=== PATIENT | male | born 1990 | race Caucasian/White ===

== ENCOUNTER 2021-08-26 22:14 | Emergency (ER) | payer BC ==
[~2021-08-26] VITALS: Ht 177.8 cm; Wt 81.6 kg
--- NOTE | 2021-08-26 22:52 | ED General ---
General Chief Complaint: General Problems/Pain Stated Complaint: BODY ACHES Nursing Triage Note: Pt c/o lower back pain, gen. body aches and rash to abd. Pt denies cough, fever, CP, or SOA. Pt has been w/o his lisinopril x 4-5 days. History of Present Illness Date Seen by Provider: Aug 26, 2021 Time Seen by Provider: 22:40 Initial Comments 31-year-old male with no significant PMH is here with complaints of a rash which appeared today on his chest and forearms and lower leg and his upper back. Rash is nonpruritic. 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 denies fever, nausea and vomiting, diarrhea, chest pain, shortness of breath, cough, headache or neck pain, visual disturbances, dizziness, dysuria.Pt has also had a low back ache since yesterday. Pt reports always lifting heavy objects. Denies sensory loss. Pt is able to ambulate. Allergies and Home Medications Allergies Coded Allergies: No Known Allergies (Verified Allergy, Unknown, 08/26/21) Patient Home Medication List Home Medication List Reviewed: Yes Naproxen (Naproxen) 500 Mg Tablet, 500 MG PO Q12H Prescribed by: GAVINO AGUIRRE MD on 08/27/21 0101 Review of Systems Review of Systems Constitutional: no symptoms reported EENTM: no symptoms reported Respiratory: no symptoms reported Cardiovascular: no symptoms reported Gastrointestinal: no symptoms reported Musculoskeletal: back pain Skin: rash Psychiatric/Neurological: No Symptoms Reported Hematologic/Lymphatic: No Symptoms Reported Immunological/Allergic: pollen allergy Past Qzmmica-Rymmly-Uetduw Hx Patient Social History Tobacco Use?: No Use of E-Cig and/or Vaping dev: No Substance use?: No Alcohol Use?: No Pt feels they are or have been: No Immunizations Up To Date Influenza Vaccine Up-to-Date: No; Not Current First/Initial COVID19 Vaccinat: denies Physical Exam Vital Signs Vital Signs - First Documented 08/26/21 22:25 Temp 37.6 Pulse 127 Resp 19 B/P (MAP) 149/86 (107) Pulse Ox 98 O2 Delivery Room Air Capillary Refill : Less Than 3 Seconds Height, Weight, BMI Height: '" Weight: lbs. oz. kg; 25.00 BMI Method: General Appearance: No Apparent Distress HEENT: PERRL/EOMI, TMs Normal, Normal ENT Inspection, Pharynx Normal Neck: Full Range of Motion, Normal Inspection Respiratory: Chest Non Tender, Lungs Clear, Normal Breath Sounds Cardiovascular: Regular Rate, Rhythm, No Edema, No Gallop Gastrointestinal: Normal Bowel Sounds, No Organomegaly, Non Tender, Soft Neurologic/Psychiatric: Alert, Oriented x3 Progress/Results/Core Measures Suspected Sepsis SIRS Temperature: Pulse: 127 Respiratory Rate: 19 Laboratory Tests 08/26/21 23:05: White Blood Count 9.5 Blood Pressure 149 /86 Mean: 107 Laboratory Tests 08/26/21 23:05: Creatinine 1.20, Platelet Count 207, Total Bilirubin 0.8 Results/Orders Lab Results Laboratory Tests Test 08/26/21 23:05 08/26/21 23:10 08/26/21 23:15 Range/Units White Blood Count 9.5 4.3-11.0 10^3/uL Red Blood Count 4.95 4.30-5.52 10^6/uL Hemoglobin 14.4 13.3-17.7 g/dL Hematocrit 41 40-54 % Mean Corpuscular Volume 83 80-99 fL Mean Corpuscular Hemoglobin 29 25-34 pg Mean Corpuscular Hemoglobin Concent 35 32-36 g/dL Red Cell Distribution Width 12.2 10.0-14.5 % Platelet Count 207 130-400 10^3/uL Mean Platelet Volume 9.6 9.0-12.2 fL Immature Granulocyte % (Auto) 0 % Neutrophils (%) (Auto) 72 42-75 % Lymphocytes (%) (Auto) 20 12-44 % Monocytes (%) (Auto) 7 0-12 % Eosinophils (%) (Auto) 0 0-10 % Basophils (%) (Auto) 1 0-10 % Neutrophils # (Auto) 6.9 1.8-7.8 10^3/uL Lymphocytes # (Auto) 1.9 1.0-4.0 10^3/uL Monocytes # (Auto) 0.7 0.0-1.0 10^3/uL Eosinophils # (Auto) 0.0 0.0-0.3 10^3/uL Basophils # (Auto) 0.1 0.0-0.1 10^3/uL Immature Granulocyte # (Auto) 0.0 0.0-0.1 10^3/uL Neutrophils % (Manual) 72 % Lymphocytes % (Manual) 10 % Monocytes % (Manual) 4 % Basophils % (Manual) 2 % Band Neutrophils 1 % Atypical Lymphocytes 3 % Reactive Lymphocytes 8 % Platelet Estimate NORMAL Blood Morphology Comment NORMAL Sodium Level 138 135-145 MMOL/L Potassium Level 3.9 3.6-5.0 MMOL/L Chloride Level 105 98-107 MMOL/L Carbon Dioxide Level 23 21-32 MMOL/L Anion Gap 10 5-14 MMOL/L Blood Urea Nitrogen 11 7-18 MG/DL Creatinine 1.20 0.60-1.30 MG/DL Estimat Glomerular Filtration Rate 82 BUN/Creatinine Ratio 9 Glucose Level 120 H 70-105 MG/DL Calcium Level 9.5 8.5-10.1 MG/DL Corrected Calcium 8.5-10.1 MG/DL Magnesium Level 2.0 1.6-2.4 MG/DL Total Bilirubin 0.8 0.1-1.0 MG/DL Aspartate Amino Transf (AST/SGOT) 20 5-34 U/L Alanine Aminotransferase (ALT/SGPT) 17 0-55 U/L Alkaline Phosphatase 60 40-136 U/L Total Protein 7.7 6.4-8.2 GM/DL Albumin 4.9 H 3.2-4.5 GM/DL Smear Scan REACTIVE LYMPHS SEEN Urine Color YELLOW Urine Clarity CLEAR Urine pH 8.0 5-9 Urine Specific [place] 1.020 1.016-1.022 Urine Protein NEGATIVE NEGATIVE Urine Glucose (UA) NEGATIVE NEGATIVE Urine Ketones 1+ H NEGATIVE Urine Nitrite NEGATIVE NEGATIVE Urine Bilirubin NEGATIVE NEGATIVE Urine Urobilinogen 0.2 < = 1.0 MG/DL Urine Leukocyte Esterase NEGATIVE NEGATIVE Urine RBC (Auto) NEGATIVE NEGATIVE Urine RBC NONE /HPF Urine WBC RARE /HPF Urine Squamous Epithelial Cells RARE /HPF Urine Crystals NONE /LPF Urine Bacteria NEGATIVE /HPF Urine Casts NONE /LPF Urine Mucus NEGATIVE /LPF Urine Culture Indicated NO Urine Opiates Screen NEGATIVE NEGATIVE Urine Oxycodone Screen NEGATIVE NEGATIVE Urine Methadone Screen NEGATIVE NEGATIVE Urine Propoxyphene Screen NEGATIVE NEGATIVE Urine Barbiturates Screen NEGATIVE NEGATIVE Ur Tricyclic Antidepressants Screen NEGATIVE NEGATIVE Urine Phencyclidine Screen NEGATIVE NEGATIVE Urine Amphetamines Screen NEGATIVE NEGATIVE Urine Methamphetamines Screen NEGATIVE NEGATIVE Urine Benzodiazepines Screen NEGATIVE NEGATIVE Urine Cocaine Screen NEGATIVE NEGATIVE Urine Cannabinoids Screen NEGATIVE NEGATIVE My Orders Orders - TIMOTHY,GAVINO L MD Cbc With Automated Diff (08/26/21 22:52) Comprehensive Metabolic Panel (08/26/21 22:52) Drug Screen Stat (Urine) (08/26/21 22:52) Magnesium (08/26/21 22:52) Ua Culture If Indicated (08/26/21 22:52) Ketorolac Injection (Toradol Injection) (08/26/21 23:00) Ed Iv/Invasive Line Start (08/26/21 22:52) Ns Iv 1000 Ml (Sodium Chloride 0.9%) (08/26/21 23:00) Dexamethasone Injection (Decadron Inje (08/26/21 23:00) Diphenhydramine Injection (Benadryl Inje (08/26/21 23:00) Covid 19 Inhouse Test (08/26/21 22:59) Manual Differential (08/26/21 23:05) Medications Given in ED Current Medications Medications Dose Ordered Sig/Ap Route Start Time Stop Time Status Last Admin Dose Admin Dexamethasone Sodium Phosphate 10 mg ONCE ONCE IV 08/26/21 23:00 08/26/21 23:01 DC 08/26/21 23:09 10 MG Diphenhydramine HCl 25 mg ONCE ONCE IVP 08/26/21 23:00 08/26/21 23:01 DC 08/26/21 23:09 25 MG Ketorolac Tromethamine 15 mg ONCE ONCE IV 08/26/21 23:00 08/26/21 23:01 DC 08/26/21 23:09 15 MG Vital Signs/I&O 08/26/21 08/26/21 22:25 23:15 Temp 37.6 Pulse 127 92 Resp 19 17 B/P (MAP) 149/86 (107) 134/89 Pulse Ox 98 97 O2 Delivery Room Air Room Air Capillary Refill : Less Than 3 Seconds Blood Pressure Mean: 107 Progress Note : Progress Note 1. CONTACT DERMATITIS/ LOW BACK PAIN: - Labs unremarkable, normal WBC and electrolytes - UA normal - NS IVF/ Benadryl 25mg iv/ Toradol 25 mg iv/ Dexa 10mg iv given. Pt feels a lot better after this - Prescriptions for Naproxen 500mg bid as needed for pain - Advised Benadryl, hydrocortisone cream for rash - Follow up with PCP in the next 3 days Departure Impression Primary Impression: Contact dermatitis Qualified Codes: L25.9 - Unspecified contact dermatitis, unspecified cause Additional Impression: Paraspinal muscle spasm Disposition: 01 HOME, SELF-CARE Condition: Improved Departure-Patient Inst. Referrals: NICOLE CARDOSO MD Patient Instructions: Contact Dermatitis (DC), Muscle Spasm ED, Muscle Spasms (DC) Add. Discharge Instructions: - Prescriptions for Naproxen 500mg bid as needed for pain - Advised Benadryl, hydrocortisone cream for rash - Follow up with PCP in the next 3 days - over the counter lidoderm patches All discharge instructions reviewed with patient and/or family. Voiced understanding. Scripts Naproxen (Naproxen) 500 Mg Tablet 500 MG PO Q12H for Renal Colic for 3 Days, #20 TAB Prov: GAVINO AGUIRRE MD 08/27/21 GAVINO AGUIRRE MD Aug 26, 2021 22:52
[2021-08-26] MEDS ORDERED: KETOROLAC 30 MG/ML VIAL IV ONE (23:00)
[2021-08-26] MEDS ORDERED: NS IV 1000 ML 1,000 ML IV SCH (23:00)
[2021-08-26] MEDS ORDERED: diphenhydrAMINE 50 MG/ML INJ (BENADRYL) IVP ONE (23:00)
[2021-08-26 23:26] LABS: BASOPHILS # (AUTO) 0.1 10^3/uL (0.0-0.1); BASOPHILS % (AUTO) 1 % (0-10); EOSINOPHILS % (AUTO) 0 % (0-10); HEMATOCRIT 41 % (40-54); HEMOGLOBIN 14.4 g/dL (13.3-17.7); LYMPHOCYTES # (AUTO) 1.9 10^3/uL (1.0-4.0); LYMPHOCYTES % (AUTO) 20 % (12-44); MEAN CORPUSCULAR HEMOGLOBIN 29 pg (25-34); MEAN CORPUSCULAR HGB CONC 35 g/dL (32-36); MEAN CORPUSCULAR VOLUME 83 fL (80-99); MEAN PLATELET VOLUME 9.6 fL (9.0-12.2); MONOCYTES # (AUTO) 0.7 10^3/uL (0.0-1.0); MONOCYTES % (AUTO) 7 % (0-12); NEUTROPHILS # (AUTO) 6.9 10^3/uL (1.8-7.8); NEUTROPHILS % (AUTO) 72 % (42-75); PLATELET COUNT 207 10^3/uL (130-400); WHITE BLOOD COUNT 9.5 10^3/uL (4.3-11.0)
[2021-08-26 23:41] LABS: BACTERIA,URINE NEGATIVE /HPF; BILIRUBIN,URINE NEGATIVE (NEGATIVE); CLARITY,URINE CLEAR; COLOR,URINE YELLOW; GLUCOSE, URINE (UA) NEGATIVE (NEGATIVE); KETONES,URINE 1+ (NEGATIVE); LEUKOCYTE ESTERASE ,URINE NEGATIVE (NEGATIVE); NITRITE,URINE NEGATIVE (NEGATIVE); PROTEIN,URINE NEGATIVE (NEGATIVE); SQUAMOUS EPITHELIAL CELL,UR RARE /HPF; WBC,URINE RARE /HPF
[2021-08-26 23:56] LABS: SMEAR SCAN COMMENT REACTIVE LYMPHS SEEN
[2021-08-26 23:57] LABS: BAND NEUTROPHILS 1 %; BASOPHILS % (MANUAL) 2 %; LYMPHOCYTES % (MANUAL) 10 %; MONOCYTES % (MANUAL) 4 %; NEUTROPHILS % (MANUAL) 72 %
[2021-08-26 23:58] LABS: ATYPICAL LYMPHOCYTES 3 %; PLATELET ESTIMATE NORMAL; RBC MORPH NORMAL; REACTIVE LYMPHOCYTES 8 %
[2021-08-26 23:59] LABS: AMPHETAMINE SCREEN, URINE NEGATIVE (NEGATIVE); BARBITURATE SCREEN URINE NEGATIVE (NEGATIVE); BENZODIAZEPINES SCREEN URINE NEGATIVE (NEGATIVE); CANNABINOID SCREEN, URINE NEGATIVE (NEGATIVE); COCAINE SCREEN URINE NEGATIVE (NEGATIVE); METHADONE STAT NEGATIVE (NEGATIVE); OPIATE SCREEN URINE NEGATIVE (NEGATIVE); OXYCODONE STAT NEGATIVE (NEGATIVE); PROPOXYPHENE STAT NEGATIVE (NEGATIVE); TRICYCLIC ANTIDEPRESSANTS SCRE NEGATIVE (NEGATIVE)
[2021-08-27 00:14] LABS: BUN/CREATININE RATIO 9; CALCIUM 9.5 MG/DL (8.5-10.1); CARBON DIOXIDE 23 MMOL/L (21-32); CHLORIDE 105 MMOL/L (98-107); GFR ESTIMATED 82; GLUCOSE 120 MG/DL (70-105); POTASSIUM 3.9 MMOL/L (3.6-5.0); SODIUM 138 MMOL/L (135-145)
[2021-08-27 00:15] LABS: ALANINE AMINOTRANSFERASE 17 U/L (0-55); ALBUMIN 4.9 GM/DL (3.2-4.5); ALKALINE PHOSPHATASE 60 U/L (40-136); BILIRUBIN,TOTAL 0.8 MG/DL (0.1-1.0); TOTAL PROTEIN 7.7 GM/DL (6.4-8.2)
[2021-08-27] MEDS ORDERED: NAPR-915 PO (01:01)
[2021-08-27 01:15] VITALS: BP 149/86
== END 2021-08-27 01:15 | disposition home or self-care (01) ==
LOC: ER FS 22:17
DX: L25.9 Unspecified contact dermatitis, unspecified cause (principal); M62.830 Muscle spasm of back
CPT/HCPCS: 36415; 80053; 80306; 81000; 83735; 85007; 85027; 87636